=== PATIENT | female | born 1985 | race Caucasian/White ===

== ENCOUNTER → 2018-06-27 | Outpatient (CLI) | payer BC ==
[~2018-06-27] MED LIST: IBUP800 PO; PRENATAL VITAM1 EAC1
[2018-06-27 12:57] LABS: BASOPHILS ABSOLUTE AUTO 0.03 K/mm3 (0.00-0.23); BASOPHILS PERCENT AUTO 0 % (0-2); EOSINOPHILS ABSOLUTE AUTO 0.09 K/mm3 (0.00-0.68); EOSINOPHILS PERCENT AUTO 1 % (0-6); Hematocrit 35.6 % (33.0-51.0); Hemoglobin 12.4 g/dL (11.5-16.0); IMMATURE GRAN ABSOLUTE AUTO 0.02 K/mm3 (0.00-0.10); IMMATURE GRAN PERCENT AUTO 0 % (0-1); LYMPHOCYTES ABSOLUTE AUTO 0.95 K/mm3 (0.84-5.20); LYMPHOCYTES PERCENT AUTO 12 % (21-46); MONOCYTES PERCENT AUTO 4 % (4-13); Mean Corpuscular HGB 29.6 pg (26.0-34.0); Mean Corpuscular HGB Conc 34.8 g/dL (31.5-36.5); Mean Corpuscular Volume 85 fL (80-100); Mean Platelet Volume 10.6 fL (9.1-12.4); NEUTROPHILS ABSOLUTE AUTO 6.89 K/mm3 (1.96-9.15); NEUTROPHILS PERCENT AUTO 83 % (41-73); Platelet Count 161 K/mm3 (150-400); RDW Coefficient Variation 13.2 % (11.7-14.2); RDW Standard Deviation 40.5 fL (35.1-46.3); Red Blood Cell Count 4.19 M/mm3 (3.80-5.20); White Blood Cell Count 8.28 K/mm3 (4.00-11.30)
[2018-06-27 13:05] LABS: Anion Gap 12 mmol/L (6-16); Blood Urea Nitrogen 9 mg/dL (8-24); CO2, Blood 21 mmol/L (21-32); Calcium, Blood 8.1 mg/dL (8.5-10.1); Chloride, Blood 104 mmol/L (98-108); Glomerular Filtration Rate >60 (60-); Glucose, Blood 82 mg/dL (70-99); Sodium, Blood 137 mmol/L (136-145)
== END ==
LOC: LAB SHORT 12:53 → LAB EV 12:53
PROVIDERS: Emergency Medicine
DX: R11.2 Nausea with vomiting, unspecified (principal)
CPT/HCPCS: 80048; 85025

== ENCOUNTER 2018-07-27 06:13 | Inpatient (IN) | payer BC ==
[~2018-07-27] VITALS: Ht 162.6 cm; Wt 0.2 kg
[2018-07-27 06:38] LABS: BASOPHILS ABSOLUTE AUTO 0.03 K/mm3 (0.00-0.23); BASOPHILS PERCENT AUTO 1 % (0-2); EOSINOPHILS PERCENT AUTO 2 % (0-6); Hematocrit 39.4 % (33.0-51.0); IMMATURE GRAN ABSOLUTE AUTO 0.02 K/mm3 (0.00-0.10); IMMATURE GRAN PERCENT AUTO 0 % (0-1); LYMPHOCYTES ABSOLUTE AUTO 1.53 K/mm3 (0.84-5.20); LYMPHOCYTES PERCENT AUTO 29 % (21-46); MONOCYTES PERCENT AUTO 8 % (4-13); Mean Corpuscular Volume 88 fL (80-100); Mean Platelet Volume 10.9 fL (9.1-12.4); NEUTROPHILS ABSOLUTE AUTO 3.26 K/mm3 (1.96-9.15); NEUTROPHILS PERCENT AUTO 61 % (41-73); Platelet Count 148 K/mm3 (150-400); RDW Coefficient Variation 13.6 % (11.7-14.2); RDW Standard Deviation 43.5 fL (35.1-46.3); Red Blood Cell Count 4.48 M/mm3 (3.80-5.20); White Blood Cell Count 5.34 K/mm3 (4.00-11.30)
[2018-07-27] MEDS ORDERED: EVENING PRIMR1000 MG PO (06:38)
[2018-07-27] MEDS ORDERED: ABAT250V (06:39)
[2018-07-27] MEDS ORDERED: CETI5 PO (06:39)
--- NOTE | 2018-07-27 13:32 | NUR ---
pt moved to room 128
[2018-07-28 05:55] LABS: BASOPHILS ABSOLUTE AUTO 0.05 K/mm3 (0.00-0.23); BASOPHILS PERCENT AUTO 1 % (0-2); EOSINOPHILS ABSOLUTE AUTO 0.15 K/mm3 (0.00-0.68); EOSINOPHILS PERCENT AUTO 2 % (0-6); Hematocrit 35.6 % (33.0-51.0); Hemoglobin 11.5 g/dL (11.5-16.0); IMMATURE GRAN ABSOLUTE AUTO 0.04 K/mm3 (0.00-0.10); IMMATURE GRAN PERCENT AUTO 1 % (0-1); LYMPHOCYTES ABSOLUTE AUTO 2.07 K/mm3 (0.84-5.20); LYMPHOCYTES PERCENT AUTO 29 % (21-46); MONOCYTES ABSOLUTE AUTO 0.51 K/mm3 (0.16-1.47); MONOCYTES PERCENT AUTO 7 % (4-13); Mean Corpuscular HGB 29.1 pg (26.0-34.0); Mean Corpuscular HGB Conc 32.3 g/dL (31.5-36.5); Mean Corpuscular Volume 90 fL (80-100); Mean Platelet Volume 10.7 fL (9.1-12.4); NEUTROPHILS ABSOLUTE AUTO 4.29 K/mm3 (1.96-9.15); NEUTROPHILS PERCENT AUTO 60 % (41-73); Platelet Count 130 K/mm3 (150-400); RDW Coefficient Variation 13.7 % (11.7-14.2); RDW Standard Deviation 45.2 fL (35.1-46.3); Red Blood Cell Count 3.95 M/mm3 (3.80-5.20); White Blood Cell Count 7.11 K/mm3 (4.00-11.30)
[2018-07-28] MEDS ORDERED: Percocet 5-3251 EACH PO (12:01)
[2018-07-28] MEDS ORDERED: IBUP800 PO (12:01)
--- NOTE | 2018-07-28 17:12 | NUR ---
PT DISCHARGED TO HOME. DISCHARGE INSTRUCTIONS GIVEN. NO QUESTIONS OR CONCERNS AT THIS TIME. PERCOCET AND IBUPROFEN PRESCRIPTION HANDED TO PATIENT.
== END 2018-07-28 16:45 | disposition home or self-care (01) | DRG 807 ==
LOC: BC 06:13
PROVIDERS: ADMIT Nurse Practitioner Obstetrics & Gynecology
PROC: 10E0XZZ Delivery of Products of Conception, External Approach (ICD-10-PCS; principal; 2018-07-27)
PROC: 10907ZC Drainage of Amniotic Fluid, Therapeutic from Products of Conception, Via Natural or Artificial Opening (ICD-10-PCS; 2018-07-27)
PROC: 3E033VJ Introduction of Other Hormone into Peripheral Vein, Percutaneous Approach (ICD-10-PCS; 2018-07-27)
PROC: 3E0R3BZ Introduction of Anesthetic Agent into Spinal Canal, Percutaneous Approach (ICD-10-PCS; 2018-07-27)
DX: O99.824 Streptococcus B carrier state complicating childbirth (principal); Z37.0 Single live birth; Z3A.39 39 weeks gestation of pregnancy; O69.1XX0 Labor and delivery complicated by cord around neck, with compression, not applicable or unspecified
CPT/HCPCS: 36415; 51702; 85025; J0290; J1885; J2001; J2590; J7120

== ENCOUNTER → 2018-12-09 | Outpatient (CLI) | payer BC ==
[~2018-12-09] MED LIST changes: +ABAT250V; +CETI5 PO; +EVENING PRIMR1000 MG PO; +Percocet 5-3251 EACH PO
[2018-12-09 12:01] LABS: Source, Urine Clean Catch
[2018-12-09 12:26] LABS: Bacteria Few /hpf; Red Blood Cells, Urine TNTC /hpf (0-2); Squamous Epithelial Cells Mod /hpf (Few)
[2018-12-09 12:27] LABS: Transitional Epithelial Cells Few /hpf ({null, 0-Rare})
== END | disposition home or self-care (01) ==
LOC: LAB EV 11:58 → LAB SHORT 11:58
PROVIDERS: General Practice
DX: J02.9 Acute pharyngitis, unspecified (principal); R82.90 Unspecified abnormal findings in urine
CPT/HCPCS: 81015; 87081; 87086; 87147

== ENCOUNTER → 2019-06-28 | Outpatient (CLI) | payer BC | END | disposition home or self-care (01) | LOC: LAB EV 08:48 → LAB SHORT 08:48 | DX: J02.0 Streptococcal pharyngitis (principal) | CPT/HCPCS: 87081 ==

== ENCOUNTER 2024-09-18 04:23 | Observation (INO) | payer OTHER ==
[2024-09-18] VITALS (14 sets, daily range): BP systolic 106–121; BP diastolic 58–98
[~2024-09-18] VITALS: Ht 162.6 cm; Wt 68.0 kg
[2024-09-18] MEDS ORDERED: FentaNYL Citrate 50 MCG/ML 2 ML Injection IV PRN ×3 (05:00→14:15)
[2024-09-18 05:04] LABS: BASOPHILS ABSOLUTE AUTO 0.06 K/mm3 (0.00-0.23); BASOPHILS PERCENT AUTO 1 % (0-2); EOSINOPHILS ABSOLUTE AUTO 0.29 K/mm3 (0.00-0.68); EOSINOPHILS PERCENT AUTO 2 % (0-6); Hematocrit 38.8 % (33.0-51.0); Hemoglobin 13.1 g/dL (11.5-16.0); IMMATURE GRAN ABSOLUTE AUTO 0.02 K/mm3 (0.00-0.10); IMMATURE GRAN PERCENT AUTO 0 % (0-1); LYMPHOCYTES ABSOLUTE AUTO 2.07 K/mm3 (0.84-5.20); LYMPHOCYTES PERCENT AUTO 18 % (21-46); MONOCYTES ABSOLUTE AUTO 0.47 K/mm3 (0.16-1.47); MONOCYTES PERCENT AUTO 4 % (4-13); Mean Corpuscular HGB 29.3 pg (26.0-34.0); Mean Corpuscular HGB Conc 33.8 g/dL (31.5-36.5); Mean Corpuscular Volume 87 fL (80-100); Mean Platelet Volume 11.1 fL (9.1-12.4); NEUTROPHILS ABSOLUTE AUTO 8.93 K/mm3 (1.96-9.15); NEUTROPHILS PERCENT AUTO 75 % (41-73); Platelet Count 219 K/mm3 (150-400); RDW Coefficient Variation 12.7 % (11.7-14.2); RDW Standard Deviation 40.2 fL (35.1-46.3); Red Blood Cell Count 4.47 M/mm3 (3.80-5.20); White Blood Cell Count 11.84 K/mm3 (4.00-11.30)
[2024-09-18] MEDS ORDERED: NS 1,000 ML IV SCH (05:15)
[2024-09-18] MEDS ORDERED: Ondansetron HCl 2 MG / ML 2ML Vial IV ONE (05:15)
[2024-09-18 05:28] LABS: Albumin, Blood 3.7 g/dL (3.4-5.0); Albumin/Globulin Ratio 1.2 (0.8-1.8); Bilirubin, Total 1.1 mg/dL (0.1-1.0); Calcium, Blood 8.8 mg/dL (8.5-10.1); Creatinine, Blood 0.71 mg/dL (0.40-1.00); Globulin, Blood 3.2 g/dL (2.2-4.0); Total Protein, Blood 6.9 g/dL (6.4-8.2)
[2024-09-18] MEDS ORDERED: Ampicillin Sod/Sulbactam Sod 3 GM in NS 100 ML IV ONE (06:40)
[2024-09-18 06:48] LABS: Source, Urine Clean Catch
[2024-09-18 07:02] LABS: Bilirubin, Urine Neg (Neg); Blood, Urine Neg (Neg); Glucose Qualitative, Urine Neg (Neg); Ketones, Urine Neg (Neg); Leukocyte Esterase, Urine Neg (Neg); Nitrite, Urine Neg (Neg); Protein, Urine Neg (Neg); Urobilinogen, Urine NORM (Normal)
[2024-09-18 07:03] LABS: Appearance, Urine Clear (Clear); Color, Urine Yellow (P-Yellow)
[2024-09-18] MEDS ORDERED: HYDROmorphone HCl/Pf 1MG SYR IV PRN ×3 (08:00→14:15)
[2024-09-18] MEDS ORDERED: Acetaminophen 325 MG TABLET PO PRN (08:00)
[2024-09-18] MEDS ORDERED: Ondansetron HCl 2 MG / ML 2ML Vial IV PRN ×2 (08:00→14:15)
[2024-09-18] MEDS ORDERED: Lactated Ringer's 1,000 ML IV SCH ×2 (08:00→10:50)
[2024-09-18] MEDS ORDERED: OxyCODONE HCL 5 MG TAB PO PRN (08:05)
[2024-09-18] MEDS ORDERED: Ketorolac Tromethamine 15mg Vial IV PRN (08:10)
[2024-09-18] MEDS ORDERED: MIRENA1 EAC3 VAG (09:56)
--- NOTE | 2024-09-18 11:12 | NUR ---
PT TO OR.
[2024-09-18] MEDS ORDERED: Bupivacaine 0.5% W/EPI 1:200000 SDV 30 ML Vial ONE (11:50)
[2024-09-18] MEDS ORDERED: propofoL 20 ML IV ONE (11:56)
[2024-09-18] MEDS ORDERED: Midazolam HCl 1MG / ML 2ML Vial ONE (11:56)
[2024-09-18] MEDS ORDERED: HYDROmorphone HCl/Pf 1MG SYR ONE (11:56)
[2024-09-18] MEDS ORDERED: Rocuronium Bromide 10 MG/ML 5ML Injection IV ONE (11:58)
[2024-09-18] MEDS ORDERED: Ampicillin Sod/Sulbactam Sod 3 GM in NS 100 ML IV SCH (13:00)
[2024-09-18] MEDS ORDERED: propofoL 50 ML IV ONE (13:42)
[2024-09-18] MEDS ORDERED: Metoclopramide HCl 5MG / ML 2ML Vial ONE (13:49)
[2024-09-18] MEDS ORDERED: Dexamethasone Sod Phos 10 MG/ML 1ML VIAL ONE (13:49)
[2024-09-18] MEDS ORDERED: FentaNYL Citrate 50 MCG/ML 2 ML Injection ONE (14:02)
[2024-09-18] MEDS ORDERED: Sugammadex Sodium 200 MG/2ML SDV (100 MG/ML) ONE (14:02)
[2024-09-18] MEDS ORDERED: OXYC5 PO (14:51)
--- NOTE | 2024-09-18 15:01 | NUR ---
Pt arrived to room 224 from pacu VSS. LAP INCISIONS TO ABD X3 W/TISS ADHESIVE CDI. PROVIDED WATER AND SNACKS. PT DENIES PAIN OR N/V. CALL LIGHT IN REACH. FAMILY BEDSIDE.
--- NOTE | 2024-09-18 16:55 | NUR ---
pt states doing "great" denies pain in abd. report some back soreness. denies n/v. ate some jello and drank some water and starry. asked about discharge; advised pt needs to void prior to going home. pt verbalized understanding. call light in reach.
--- NOTE | 2024-09-18 17:36 | NUR ---
SUMMARY PT REPORTS MINIMAL PAIN, TOLERATING PO, VOIDED, VSS. WISHES TO DC HOME. FATHER IN LAW WENT TO SUPERVISOR TUNNEL HEADING PRESCRIPTIONS. PT RESTING IN BED, DINNER BEDSIDE. CALL LIGHT IN REACH.
--- NOTE | 2024-09-18 18:30 | NUR ---
DISCHARGING VSS. DC'D IV, CATHETER INTACT. REVIEWED DC INSTRUCTIONS W/PT; VERBALIZED UNDERSTANDING. SIGNED DC INSTRUCTIONS. GETTING DRESSED. FAMILY BEDSIDE.
--- NOTE | 2024-09-18 18:34 | NUR ---
discharged PT LEFT UNIT IN WC, ACCOMPANIED BY FAMILY WHO HAD POSSESSIONS AND DC PAPERWORK IN HAND.
== END 2024-09-18 18:36 | disposition home or self-care (01) ==
LOC: ER 04:23 → SURS 04:24
PROVIDERS: Emergency Medicine; ADMIT Surgery
PROC: 0DTJ0ZZ Resection of Appendix, Open Approach (ICD-10-PCS; principal; 2024-09-18 12:30)
DX: K35.80 Unspecified acute appendicitis (principal); E86.0 Dehydration; Z72.0 Tobacco use
CPT/HCPCS: 74177; 80053; 81003; 84703; 85025; 88304; 93005; 93010; 96365-59; 96375; 96376; 99285-25; A9270; G0378; J0295; J1100; J1171; J1885; J2250; J2405; J2704; J2765; J3010; J7030; J7120; Q9967